=== PATIENT | female | born 1955 | race Caucasian/White ===

== ENCOUNTER → 2018-06-19 | Outpatient (CLI) | payer MEDICARE, BC ==
[2018-06-19 14:31] VITALS: BP 94/69; PULSE 108; TEMP 97.6; BMI 28.5
--- NOTE | 2018-06-19 14:40 | P.BASOAP ---
Subjective Progress Note Date: 06/19/18 Principal diagnosis: Morbid obesity Patient returns for bariatric follow-up today. Overall poor follow-up. She had her surgery at [facility]. Her surgery was in 2012. She believes she has not seen us for the last 3-4 years. Starting weight around 250. Today she weighs 171. She says that much of her weight has occurred over the last 2 years. During that time. She has noticed a decrease in appetite and decrease in cravings. Patient is being worked up for possible dementia. She also has symptoms of poor balance and gait issues. She states she had a extensive lab workup in March of this year. The labs are not available to me at this time to review. Denies nausea or vomiting. No reflux. No pain. Objective - Vital Signs Vital signs: Vital Signs Temp 97.6 F 06/19/18 14:27 Pulse 108 H 06/19/18 14:27 Resp BP 94/69 06/19/18 14:27 Pulse Ox Intake & Output 06/18/18 06/19/18 06/19/18 18:59 06:59 18:59 Weight 77.836 kg - Exam Abdomen: Soft, nontender, nondistended Assessment/Plan (1) Obesity Narrative/Plan: From a weight loss standpoint patient doing well. We'll try to review the patient's recent labs from March. We'll be sure that thiamine level was checked. Increase exercise level. Follow-up annually. Plan: Date: 06/19/18 Initial Weight: Initial BMI: Current Weight: 77.836 kg Current BMI: 28.5 Type of Surgery: Total Volume in Band: Previous Volume: Volume Removed: Volume Added: Band Size:
== END ==
LOC: BARWHC3 13:52
PROVIDERS: ATTEND Surgery
DX: E66.01 Morbid (severe) obesity due to excess calories (principal); Z68.28 Body mass index [BMI] 28.0-28.9, adult
CPT/HCPCS: 99211

== ENCOUNTER 2020-05-10 15:20 | Observation (INO) | payer MEDICARE, OTHER ==
[2020-05-10] MEDS ORDERED: SODIUM CHLORIDE 0.9% 1,000 ML IV STA (15:58)
[2020-05-10] MEDS ORDERED: ONDANSETRON 4 MG/2 ML VIAL IVP STA (16:02)
[2020-05-10 16:17] LABS: Basophils # (A) 0.1 k/uL (0-0.2); Basophils % (A) 1 %; Eosinophils # (A) 0.6 k/uL (0-0.7); Eosinophils % (A) 7 %; HCT 43.2 % (34.0-46.0); HGB 13.8 gm/dL (11.4-16.0); Lymphocytes # (A) 1.3 k/uL (1.0-4.8); Lymphocytes % (A) 16 %; MCH 30.9 pg (25.0-35.0); MCV 96.5 fL (80.0-100.0); Mean Platelet Volume 8.9; Monocytes # (A) 0.5 k/uL (0-1.0); Monocytes % (A) 7 %; Neutrophils # (A) 5.2 k/uL (1.3-7.7); Neutrophils % (A) 68 %; Platelet Count 177 k/uL (150-450); RBC 4.48 m/uL (3.80-5.40); RDW 12.6 % (11.5-15.5); WBC 7.7 k/uL (3.8-10.6)
--- NOTE | 2020-05-10 16:22 | ED ---
Fall HPI - General Chief Complaint: Fall Stated Complaint: Fall Time Seen by Provider: 05/10/20 15:34 Source: patient Mode of arrival: ambulatory - History of Present Illness Initial Comments: Patient is a 65-year-old female presents emergency room after she sustained a fall on Monday. The patient was in her garage when she tripped over an abdomen that was on the floor. She fell forward hitting the left side of her forehead on the cement. Denies any loss of consciousness at that time. She was able to get up and states that she's had a mild headache with some mild nausea since the incident. Today she was at her daughter's house on the floor playing with her dog. She was moving her head back and forth because the dog was attempting to chew on her tearing and states that she began feeling extremely dizzy and nauseated. She felt as if she was spinning in the room. She got up and felt as if she couldnt walk a straight line. Patient does have some difficulties with ambulation as she has frontal lobe dementia however states this never been this significant. She does not require the assistance of a walker or cane. Patient admits only to a very mild headache. No visual changes. The patient has had a couple episodes of emesis. She denies any weakness in her extremities. Did not take any medications for symptoms per patient comes in extremely hypertensive. She does not take any blood thinners. No other alleviating, precipitating or modifying factors - Related Data Home Medications Medication Instructions Recorded Confirmed Venlafaxine HCl [Effexor] 100 mg PO BID 06/19/18 05/10/20 metFORMIN HCL 1,000 mg PO BID 06/19/18 05/10/20 [place]-3 Fatty Acids/Fish Oil [Fish 1 cap PO BID 05/10/20 05/10/20 Oil 1,000 mg Softgel] Omeprazole 20 mg PO HS 05/10/20 05/10/20 Suvorexant [Belsomra] 20 mg PO HS 05/10/20 05/10/20 Ubidecarenone [Co Q-10] 100 mg PO BID 05/10/20 05/10/20 buPROPion XL [Wellbutrin XL] 450 mg PO DAILY 05/10/20 05/10/20 lamoTRIgine [LaMICtal] 200 mg PO HS 05/10/20 05/10/20 Previous Rx's Medication Instructions Recorded Meclizine [Antivert] 12.5 mg PO TID tab 05/11/20 Allergies Allergy/AdvReac Type Severity Reaction Status Date / Time No Known Allergies Allergy Verified 05/10/20 16:30 Review of Systems ROS Statement: Those systems with pertinent positive or pertinent negative responses have been documented in the HPI. ROS Other: All systems not noted in ROS Statement are negative. Past Medical History Past Medical History: Dementia, Diabetes Mellitus, Fibromyalgia Additional Past Medical History / Comment(s): DM2 History of Any Multi-Drug Resistant Organisms: None Reported Past Surgical History: Bariatric Surgery Additional Past Surgical History / Comment(s): sleeve gastrectomy 2013 Past Psychological History: Depression Smoking Status: Never smoker Past Alcohol Use History: Rare Past Drug Use History: None Reported General Exam Limitations: no limitations General appearance: alert, in no apparent distress Head exam: Present: atraumatic, normocephalic, normal inspection Eye exam: Present: normal appearance, PERRL, EOMI. Absent: scleral icterus, conjunctival injection, periorbital swelling ENT exam: Present: normal exam, mucous membranes moist Neck exam: Present: normal inspection. Absent: tenderness, meningismus, lymphadenopathy Respiratory exam: Present: normal lung sounds bilaterally. Absent: respiratory distress, wheezes, rales, rhonchi, stridor Cardiovascular Exam: Present: regular rate, normal rhythm, normal heart sounds. Absent: systolic murmur, diastolic murmur, rubs, gallop, clicks GI/Abdominal exam: Present: soft, normal bowel sounds. Absent: distended, tenderness, guarding, rebound, rigid Extremities exam: Present: normal inspection, full ROM, normal capillary refill. Absent: tenderness, pedal edema, joint swelling, calf tenderness Back exam: Present: normal inspection Neurological exam: Present: alert, oriented X3, CN II-XII intact Psychiatric exam: Present: normal affect, normal mood Skin exam: Present: warm, dry, intact, normal color. Absent: rash Course Vital Signs 05/10/20 05/10/20 05/10/20 15:25 16:31 17:00 Temperature 98.4 F Pulse Rate 74 69 74 Respiratory 18 18 18 Rate Blood Pressure 204/121 163/95 150/84 O2 Sat by Pulse 100 96 100 Oximetry 05/10/20 17:30 Temperature Pulse Rate 67 Respiratory 18 Rate Blood Pressure 161/86 O2 Sat by Pulse 98 Oximetry Medical Decision Making - Medical Decision Making Upon arrival patient is placed in room 1. A thorough history and physical exam was performed. We did repeat her blood pressure which is markedly improved from triage blood pressure. Periphery is established. 12-lead EKG was performed. Patient was given 4 mg of Zofran for her nausea and vomiting. I did recommend a CT of the patient's brain, cervical spine and facial bones. Imaging is negative for any acute fractures or intracranial bleeding. Laboratory studies are performed and are reviewed. Patient was reevaluated. Continues to have some room spinning sensation. Patient was given a dose of meclizine. I discussed diagnosis, differential treatment options. At this time I did recommend hospital admission for patient's to be evaluated by neurology. She is made aware that there is no neurology in house however they will be available tomorrow morning. I spoke with Dr. Waggoner who accepted admission for the patient. Patient remained in stable condition awaiting a bed on the floor - Lab Data Result diagrams: 05/11/20 06:38 05/11/20 06:38 Lab Results 05/10/20 05/10/20 05/10/20 Range/Units 16:07 16:07 16:07 WBC 7.7 (3.8-10.6) k/uL RBC 4.48 (3.80-5.40) m/uL Hgb 13.8 (11.4-16.0) gm/dL Hct 43.2 (34.0-46.0) % MCV 96.5 (80.0-100.0) fL MCH 30.9 (25.0-35.0) pg MCHC 32.0 (31.0-37.0) g/dL RDW 12.6 (11.5-15.5) % Plt Count 177 (150-450) k/uL Neutrophils % 68 % Lymphocytes % 16 % Monocytes % 7 % Eosinophils % 7 % Basophils % 1 % Neutrophils # 5.2 (1.3-7.7) k/uL Lymphocytes # 1.3 (1.0-4.8) k/uL Monocytes # 0.5 (0-1.0) k/uL Eosinophils # 0.6 (0-0.7) k/uL Basophils # 0.1 (0-0.2) k/uL PT 10.6 (9.0-12.0) sec INR 1.0 (<1.2) Sodium 136 L (137-145) mmol/L Potassium 4.7 (3.5-5.1) mmol/L Chloride 103 (98-107) mmol/L Carbon Dioxide 27 (22-30) mmol/L Anion Gap 6 mmol/L BUN 19 H (7-17) mg/dL Creatinine 0.73 (0.52-1.04) mg/dL Est GFR (CKD-EPI)AfAm >90 (>60 ml/min/1.73 sqM) Est GFR (CKD-EPI)NonAf 88 (>60 ml/min/1.73 sqM) Glucose 123 H (74-99) mg/dL Plasma Lactic Acid Husam (0.7-2.0) mmol/L Calcium 9.6 (8.4-10.2) mg/dL Total Bilirubin 0.7 (0.2-1.3) mg/dL AST 30 (14-36) U/L ALT 17 (4-34) U/L Alkaline Phosphatase 94 (38-126) U/L Troponin I (0.000-0.034) ng/mL Total Protein 7.0 (6.3-8.2) g/dL Albumin 4.3 (3.5-5.0) g/dL 05/10/20 05/10/20 Range/Units 16:07 16:07 WBC (3.8-10.6) k/uL RBC (3.80-5.40) m/uL Hgb (11.4-16.0) gm/dL Hct (34.0-46.0) % MCV (80.0-100.0) fL MCH (25.0-35.0) pg MCHC (31.0-37.0) g/dL RDW (11.5-15.5) % Plt Count (150-450) k/uL Neutrophils % % Lymphocytes % % Monocytes % % Eosinophils % % Basophils % % Neutrophils # (1.3-7.7) k/uL Lymphocytes # (1.0-4.8) k/uL Monocytes # (0-1.0) k/uL Eosinophils # (0-0.7) k/uL Basophils # (0-0.2) k/uL PT (9.0-12.0) sec INR (<1.2) Sodium (137-145) mmol/L Potassium (3.5-5.1) mmol/L Chloride (98-107) mmol/L Carbon Dioxide (22-30) mmol/L Anion Gap mmol/L BUN (7-17) mg/dL Creatinine (0.52-1.04) mg/dL Est GFR (CKD-EPI)AfAm (>60 ml/min/1.73 sqM) Est GFR (CKD-EPI)NonAf (>60 ml/min/1.73 sqM) Glucose (74-99) mg/dL Plasma Lactic Acid Husam 2.0 (0.7-2.0) mmol/L Calcium (8.4-10.2) mg/dL Total Bilirubin (0.2-1.3) mg/dL AST (14-36) U/L ALT (4-34) U/L Alkaline Phosphatase (38-126) U/L Troponin I <0.012 (0.000-0.034) ng/mL Total Protein (6.3-8.2) g/dL Albumin (3.5-5.0) g/dL - EKG Data EKG Comments: EKG demonstrates a normal sinus rhythm with a ventricular rate of 81. AK interval 160. QRS 98. QTC 443. No acute ST segment elevations or depressions concerning for ischemic changes Disposition Clinical Impression: Fall, Blunt head trauma, Concussion, Vertigo, Vomiting Disposition: ADMITTED IP TO THIS [facility] Condition: Stable Is patient prescribed a controlled substance at d/c from ED?: No Decision to Admit Reason: Admit from EC Decision Date: 05/10/20 Decision Time: 17:16
[2020-05-10 16:30] LABS: ALT 17 U/L (4-34); AST 30 U/L (14-36); African American GFR (CKD) >90 (>60 ml/min/1.73 sqM); Albumin 4.3 g/dL (3.5-5.0); Alkaline Phosphatase 94 U/L (38-126); Anion Gap 6 mmol/L; Blood Urea Nitrogen 19 mg/dL (7-17); Calcium 9.6 mg/dL (8.4-10.2); Carbon Dioxide 27 mmol/L (22-30); Chloride 103 mmol/L (98-107); Glucose 123 mg/dL (74-99); Non-African American GFR(CKD) 88 (>60 ml/min/1.73 sqM); Potassium 4.7 mmol/L (3.5-5.1); Sodium 136 mmol/L (137-145); Total Bilirubin 0.7 mg/dL (0.2-1.3)
[2020-05-10 16:36] LABS: Prothrombin Time 10.6 sec (9.0-12.0)
[2020-05-10] MEDS ORDERED: MECLIZINE 12.5 MG TAB PO STA (16:45)
--- NOTE | 2020-05-10 16:52 | CT ---
EXAMINATION TYPE: CT brain adrianaine wo con DATE OF EXAM: 05/10/2020 COMPARISON: None HISTORY: Trauma, fall, vomiting, dizziness. CT DLP: 1218.4 mGycm Automated exposure control for dose reduction was used. Ventricles of normal size. There is no mass effect nor midline shift. There is no sign of intracrania l hemorrhage. The calvarium is intact. There is no evidence of cerebral edema. There is normal aerati on of the mastoid sinuses. Cervical vertebra have normal alignment. There is disc space narrowing at C5-6 and C6-7 with spurring of the endplates. There is mild hypertrophic multilevel cervical facet arthropathy. There is no comp ression fracture. I see no bony destructive process. IMPRESSION: Negative CT scan of the brain. Spondylotic changes in the cervical spine. No fracture.
--- NOTE | 2020-05-10 16:54 | CT ---
EXAMINATION TYPE: CT facial bones wo con DATE OF EXAM: 05/10/2020 COMPARISON: None HISTORY: Trauma, fall, vomiting, dizziness. CT DLP: 1218.4 mGycm Automated exposure control for dose reduction was used. Images were obtained from the bottom of the mandible to the top of the frontal sinuses with no contra st. The mandibular ring is intact. Temporomandibular joints are intact. There is normal appearance of the zygomatic arches appear maxilla is intact. Nasal bone appears intact. There is no evidence of a blow out fracture. Orbital margins are intact. There is no evidence of retro-orbital mass. There is fairly normal aeration of the paranasal sinuses. I see no bony destructive process. Mastoid sinuses appear normal. IMPRESSION: Negative CT scan of the facial bones. No fracture.
[2020-05-10] MEDS ORDERED: NALOXONE 0.4 MG/ML 1 ML VIAL IV PRN (17:16)
[2020-05-10] MEDS ORDERED: ALPRAZolam 0.25 MG TAB PO PRN (17:58)
[2020-05-10] MEDS ORDERED: HYDROcodone/APAP 5-325MG 1 EACH TAB PO PRN (17:58)
--- NOTE | 2020-05-10 19:04 | US ---
EXAMINATION TYPE: US carotid duplex BILAT DATE OF EXAM: 05/10/2020 COMPARISON: NONE CLINICAL HISTORY: stroke. Dizziness, nausea and vomiting. EXAM MEASUREMENTS: RIGHT: Peak Systolic Velocity (PSV) cm/sec ----- Right CCA: 76.9 ----- Right ICA: 72.6 ----- Right ECA: 79.8 ICA/CCA ratio: 0.9 RIGHT: End Diastole cm/sec ----- Right CCA: 26.0 ----- Right ICA: 26.0 ----- Right ECA: 8.6 LEFT: Peak Systolic Velocity (PSV) cm/sec ----- Left CCA: 79.8 ----- Left ICA: 98.7 ----- Left ECA: 87.1 ICA/CCA ratio: 1.2 LEFT: End Diastole cm/sec ----- Left CCA: 23.1 ----- Left ICA: 39.1 ----- Left ECA: 12.9 VERTEBRALS (direction of flow): Right Vertebral: Antegrade Left Vertebral: Antegrade Rhythm: Normal No significant stenosis seen IMPRESSION: There is antegrade flow in the vertebral arteries. The images and measurements suggest less than 15% stenosis in both internal carotid arteries. Criteria for Assigning % of Stenosis / Diameter reduction (Estimation based on the indirect measurements of the internal carotid artery velocities (ICA PSV). 1. Normal (no stenosis)=ICA PSV < 125 cm/s: ratio < 2.0: ICA EDV<40 cm/s. 2. Less than 50% stenosis=ICA PSV < 125 cm/s: ratio < 2.0: ICA EDV<40 cm/s. 3. 50 to 69% stenosis=ICA PSV of 125 to 230 cm/s: ration 2.0 ? 4.0: ICA EDV 40-100 cm/s. 4. Greater than 70% stenosis to near occlusion= ICA PSV > 230 cm/s: ratio > 4.0: ICA EDV > 100 cm/s. 5. Near occlusion= ICA PSV velocities may be low or undetectable: variable ratio and ICA EDV. 6. Total occlusion=unable to detect flow.
[2020-05-10] MEDS ORDERED: NON FORMULARY DRUG (Omeprazole [Omeprazole] 20 MG Capsule.Dr) PO SCH (21:00)
[2020-05-10] MEDS ORDERED: NON FORMULARY DRUG (Omega-3 Fatty Acids/Fish Oil [Fish Oil 1,000 Mg Softgel] 1 EACH Capsul PO SCH (21:00)
[2020-05-10] MEDS ORDERED: NON FORMULARY DRUG (Suvorexant [Belsomra] 20 MG Tablet) PO SCH (21:00)
[2020-05-10] MEDS ORDERED: NON FORMULARY DRUG (Ubidecarenone [Co Q-10] 100 MG Capsule) PO SCH (21:00)
[2020-05-10] MEDS ORDERED: lamoTRIgine 100 MG TAB PO SCH (21:00)
[2020-05-10] MEDS: metFORMIN 500 MG TAB PO SCH (21:17)
[2020-05-10] MEDS: VENLAFAXINE HCL 50 MG TAB PO SCH (21:17)
[2020-05-10] MEDS: MECLIZINE 25 MG TAB PO SCH (21:18)
[2020-05-10] MEDS: HEPARIN SODIUM,PORCINE 5,000 UNIT/ML 1 ML VIAL SQ SCH (21:18)
[2020-05-10] MEDS: ASPIRIN 81 MG PO SCH (21:19)
[2020-05-10 22:09] LABS: Glucose,Whole Blood 107 mg/dL (75-99)
[2020-05-10] MEDS: ONDANSETRON 4 MG/2 ML VIAL IVP PRN (22:15)
--- NOTE | 2020-05-11 01:14 | HP ---
HISTORY AND PHYSICAL CHIEF COMPLAINT: Dizziness and fall. HISTORY OF PRESENT ILLNESS: This 65-year-old woman with a past medical history of multiple medical problems with history of dementia, history of diabetes, history of fibromyalgia, history of , history of bariatric surgery being followed Dr. Emilia Kemp in the outpatient setting apparently had a fall on Monday and the patient tripped over on the floor. The patient hit the left side of the forehead and today the patient was playing with the puppy and subsequently patient had significant dizziness and difficulty walking. The patient came to [facility] and was admitted for further evaluation and treatment. There is no history of fever or rigors. No history of headache, loss of consciousness or seizures at this time. PAST MEDICAL HISTORY: History of dementia, diabetes mellitus, fibromyalgia, history of bariatric surgery. MEDICATIONS: Medications prior to admission include: 1. Metformin. 2. Lamictal. 3. Wellbutrin. 4. Effexor. 5. Coenzyme Q. 6. Belsomra. 7. Omeprazole. ALLERGIES: Allergies are none. FAMILY HISTORY: No history of heart disease or strokes in the family. SOCIAL HISTORY: No history of smoking. No history of alcohol. REVIEW OF SYSTEMS: ENT: As mentioned earlier. CARDIOVASCULAR SYSTEM: No angina. RESPIRATORY SYSTEM: As mentioned earlier. GI: As mentioned earlier. : No dysuria. NERVOUS SYSTEM: No numbness or weakness. ALLERGY/IMMUNOLOGY: No asthma or hayfever. MUSCULOSKELETAL: As mentioned earlier. HEMATOLOGY/ONCOLOGY: No history of anemia. ENDOCRINE: History of diabetes. CONSTITUTIONAL: As mentioned earlier. DERMATOLOGY: Negative. RHEUMATOLOGY: Negative. PSYCHIATRY: As mentioned earlier. PHYSICAL EXAMINATION: The patient is alert and oriented x3. Pulse 67, blood pressure 161/86, respiration 18, temperature 98.4, pulse ox 98% on room air. HEENT: Conjunctivae normal. Oral mucosa moist. Otherwise some bruise around the left eye present. NECK: No jugular venous distention. No carotid bruit. No lymph enlargement. CARDIOVASCULAR: S1, S2 muffled. No S3, no S4. RESPIRATORY: Breath sounds diminished at the bases. No rhonchi. No crackles. ABDOMEN: Soft. Nontender. No mass palpable. LEGS: No edema, no swelling. NERVOUS SYSTEM: Higher functions as mentioned earlier. Otherwise, cranial nerves 2 through 12 grossly intact. Minimal nystagmus present. Otherwise, no focal motor or sensory deficits. No signs of cerebellar dysfunction. Gait not tested. SKIN: As mentioned earlier. JOINTS: No active deforming arthropathy. LYMPHATICS: No lymphadenopathy of the neck, axillae or groin. LABS: CBC within normal. Sodium 136. Glucose 123. ASSESSMENT: 1. Dizziness and vertigo, possible benign positional vertigo, rule out acute transient ischemic attack or stroke. 2. Hyponatremia. 3. Increased random blood sugar. 4. History of recent fall and possible concussion. 5. Dementia. 6. Diabetes mellitus type 2. 7. History of fibromyalgia. 8. History of bariatric surgery. 9. History of sleeve gastrectomy in 2013. 10.Depression. 11.FULL CODE. RECOMMENDATIONS AND DISCUSSION: This 65-year-old woman presented with multiple complex medical issues. Recommend to continue the current medications and symptomatic treatment. Otherwise at this time resume the home medications. Antiplatelet agents. Neurovascular workup, neurology consultation. Otherwise prognosis guarded because of multiple complex medical issues. Further recommendations to follow. A copy of dictation forwarded to Dr. Kemp who is the primary physician. MMODL / IJN: [id number] / [id number]
[2020-05-11 06:33] LABS: Glucose,Whole Blood 83 mg/dL (75-99)
[2020-05-11] MEDS: ONDANSETRON 4 MG/2 ML VIAL IVP PRN (06:36)
[2020-05-11 07:18] LABS: Basophils # (A) 0.1 k/uL (0-0.2); Basophils % (A) 1 %; Eosinophils # (A) 0.5 k/uL (0-0.7); Eosinophils % (A) 6 %; HCT 42.7 % (34.0-46.0); HGB 13.5 gm/dL (11.4-16.0); Lymphocytes # (A) 2.4 k/uL (1.0-4.8); Lymphocytes % (A) 33 %; MCH 30.8 pg (25.0-35.0); MCHC 31.7 g/dL (31.0-37.0); MCV 97.2 fL (80.0-100.0); Mean Platelet Volume 8.6; Monocytes # (A) 0.5 k/uL (0-1.0); Monocytes % (A) 7 %; Neutrophils # (A) 3.8 k/uL (1.3-7.7); Neutrophils % (A) 52 %; Platelet Count 194 k/uL (150-450); RBC 4.39 m/uL (3.80-5.40); RDW 12.7 % (11.5-15.5); WBC 7.4 k/uL (3.8-10.6)
[2020-05-11 07:29] LABS: African American GFR (CKD) >90 (>60 ml/min/1.73 sqM); Anion Gap 7 mmol/L; Blood Urea Nitrogen 15 mg/dL (7-17); Calcium 9.5 mg/dL (8.4-10.2); Carbon Dioxide 30 mmol/L (22-30); Chloride 101 mmol/L (98-107); Glucose 96 mg/dL (74-99); Non-African American GFR(CKD) 84 (>60 ml/min/1.73 sqM); Sodium 138 mmol/L (137-145)
[2020-05-11] MEDS ORDERED: PANTOPRAZOLE 40 MG TABLET PO SCH (07:30)
[2020-05-11] MEDS: metFORMIN 500 MG TAB PO SCH (07:33)
[2020-05-11] MEDS ORDERED: buPROPion XL 150 MG TAB.ER.24H PO SCH (09:00)
[2020-05-11] MEDS: MECLIZINE 25 MG TAB PO SCH (09:01)
[2020-05-11] MEDS: VENLAFAXINE HCL 50 MG TAB PO SCH (09:01)
[2020-05-11] MEDS: ASPIRIN 81 MG PO SCH (09:01)
[2020-05-11] MEDS: HEPARIN SODIUM,PORCINE 5,000 UNIT/ML 1 ML VIAL SQ SCH (09:02)
[2020-05-11 09:41] VITALS: BP 172/85; PULSE 67; RESP 18; TEMP 98.3
[2020-05-11 11:40] LABS: Glucose,Whole Blood 105 mg/dL (75-99)
--- NOTE | 2020-05-11 13:00 | ECHOF ---
Referral Reason:Stroke MEASUREMENTS -------- HEIGHT: 165.1 cm WEIGHT: 79.8 kg BP: 167/85 IVSd: 1.3 cm (0.6 - 1.1) LVIDd: 3.5 cm (3.9 - 5.3) LVPWd: 1.2 cm (0.6 - 1.1) IVSs: 1.6 cm LVIDs: 1.7 cm LVPWs: 1.6 cm LAESV Index (A-L): 25.86 ml/m Ao Diam: 2.5 cm (2.0 - 3.7) AV Cusp: 1.8 cm (1.5 - 2.6) LA Diam: 2.8 cm (2.7 - 3.8) MV EXCURSION: 15.618 mm (> 18.000) MV EF SLOPE: 68 mm/s (70 - 150) EPSS: 1.1 cm MV E Sanket: 0.83 m/s MV DecT: 251 ms MV A Sanket: 1.13 m/s MV E/A Ratio: 0.73 RAP: 5.00 mmHg RVSP: 9.64 mmHg FINDINGS -------- This was a technically good study. The left ventricular size is normal. There is mild concentric left ventricular hypertrophy. Overa ll left ventricular systolic function is normal with, an EF between 55 - 60 %. The diastolic fillin g pattern is normal for the age of the patient 7.88. The right ventricle is normal in size. The left atrial size is normal. Normal LA size by volume 22+/-6 ml/m2. The right atrial size is normal. The aortic valve is trileaflet and appears structurally normal. The mitral valve is normal. There is trace mitral regurgitation. The tricuspid valve appears structurally normal. Mild tricuspid regurgitation present. Right vent ricular systolic pressure is normal at < 35 mmHg. There is no pulmonic regurgitation present. The aortic root size is normal. Normal inferior vena cava with normal inspiratory collapse consistent with estimated right atrial pre ssure of 5 mmHg. There is no pericardial effusion. CONCLUSIONS -------- 1. The left ventricular size is normal. 2. There is mild concentric left ventricular hypertrophy. 3. Overall left ventricular systolic function is normal with, an EF between 55 - 60 %. 4. The diastolic filling pattern is normal for the age of the patient 7.88 5. There is trace mitral regurgitation. 6. Mild tricuspid regurgitation present. THIRD RIGGER: Della Kyle RDCS
--- NOTE | 2020-05-11 13:30 | P.CNNES ---
History of Present Illness Consult date: 05/11/20 Requesting physician: Joann Puckett Reason for Consult: Acute vertigo, recent BHT History of Present Illness: Patient is a 65-year-old female came to the hospital yesterday at 3:20 PM after she sustained a fall on 05/06/2020 at 2 PM. The patient was in the garage, and she tripped over a molding that was on the floor. She fell forward hitting the left side of her forehead on the cement. Denies any loss of consciousness at that time. She was able to get up by using support of the chair. After the incident, she had a mild headache with some mild nausea. The symptoms improved significantly at the end of the following day. Patient states that yesterday at around 1 to 1:15 PM, she was playing with the dog, laying supine on the bed. The dog tried to nibble on her earrings and she was moving her head [id number]. Afterwards, when she got up, she felt severe nausea, lightheaded, imbalance. She denied any spinning sensation. She got up and sat in the recliner for about half an hour, with symptoms no better. Any time she would move her head, or even when she moves her eyes, she would feel d radha/imbalance. She decided to come to the ER, and arrived yesterday at 3:20 PM. Patient states that for about couple weeks before this fall, she has been feeling slightly unsteady, was noticing has to be more careful for the balance. Vital signs on arrival was blood pressure 204/121, pulse rate 74 temperature 98.4. The blood pressure did improve 163/95 subsequently. Computed tomography scan of the brain is normal. CT of the cervical spine showed spondylotic changes in the cervical spine. No fracture. CT of the facial bones normal. No fracture. EKG normal sinus rhythm. Carotid Doppler showed antegrade flow in the vertebral arteries. The images and measurements suggest less than 15% stenosis in both ICAs. Blood tests shows normal CBC, PT/PTT, Chem-7. Hepatic panel normal. Patient had a 2-D echo performed today, which revealed normal left ventricular size. Mild concentric LVH. EF is between 55-60%. Patient denies any tobacco or alcohol. She has diabetes for 20 years. She is hypertension. Patient states that a year ago, she had developed some hypotension, with which she had dizziness but nothing what she experienced yesterday. Patient states that she follows up with Dr. Martínez and has been diagnosed with frontotemporal dementia. This was diagnosed after she underwent neuropsychological testing and a PET scan. She also has fibromyalgia and major depression. Review of Systems As above in detail. Patient denies any focal numbness, tingling slurred speech, loss of vision, diplopia. She did have some nausea but no diarrhea. Denies abdominal pain. Denies chest pain. All other review of systems unremarkable. Past Medical History Past Medical History: Dementia, Diabetes Mellitus, Fibromyalgia Additional Past Medical History / Comment(s): DM2, major depressive disorder History of Any Multi-Drug Resistant Organisms: None Reported Past Surgical History: Back Surgery, Bariatric Surgery, Cholecystectomy, H ysterectomy, Orthopedic Surgery Additional Past Surgical History / Comment(s): sleeve gastrectomy 2012 Past Anesthesia/Blood Transfusion Reactions: No Reported Reaction Past Psychological History: Depression Smoking Status: Never smoker Past Alcohol Use History: Rare Past Drug Use History: None Reported Medications and Allergies Home Medications Medication Instructions Recorded Confirmed Type Venlafaxine HCl [Effexor] 100 mg PO BID 06/19/18 05/10/20 History metFORMIN HCL 1,000 mg PO BID 06/19/18 05/10/20 History [place]-3 Fatty Acids/Fish Oil [Fish 1 cap PO BID 05/10/20 05/10/20 History Oil 1,000 mg Softgel] Omeprazole 20 mg PO HS 05/10/20 05/10/20 History Suvorexant [Belsomra] 20 mg PO HS 05/10/20 05/10/20 History Ubidecarenone [Co Q-10] 100 mg PO BID 05/10/20 05/10/20 History buPROPion XL [Wellbutrin Xl] 450 mg PO DAILY 05/10/20 05/10/20 History lamoTRIgine [LaMICtal] 200 mg PO HS 05/10/20 05/10/20 History Allergies Allergy/AdvReac Type Severity Reaction Status Date / Time No Known Allergies Allergy Verified 05/10/20 16:30 Physical Examination - Vital Signs Vital Signs: Vital Signs Temp Pulse Pulse Pulse Pulse Resp BP 05/11/20 02:46 63 16 05/11/20 02:45 98.0 F 63 16 05/10/20 19:50 72 15 05/10/20 19:25 98.0 F 72 15 05/10/20 18:08 98.4 F 71 18 05/10/20 17:57 110 H 108 H 108 H 05/10/20 17:30 67 18 161/86 05/10/20 17:00 74 18 150/84 05/10/20 16:31 69 18 163/95 05/10/20 15:25 98.4 F 74 18 204/121 BP BP BP Pulse Ox 05/11/20 02:46 05/11/20 02:45 167/85 97 05/10/20 19:50 05/10/20 19:25 144/74 99 05/10/20 18:08 165/88 97 05/10/20 17:57 168/88 159/86 152/88 05/10/20 17:30 98 05/10/20 17:00 100 05/10/20 16:31 96 05/10/20 15:25 100 Intake and Output 05/10/20 05/11/20 05/11/20 22:59 06:59 14:59 Output Total 100 Balance -100 Output: Emesis 100 Other: # Voids 3 Weight 80.1 kg On examination patient is a late middle aged female, in no acute distress. Patient is alert and awake fully oriented to time place and person. Speech and language functions are normal. Attention and concentration fund of knowledge appears adequate. Detail testing deferred. On cranial examination pupils are round and reactive to light, visual hernandez are full on confrontation, extraocular muscles are intact with no nystagmus. Face is symmetric, tongue protrudes the midline. Palatal elevation sensation normal. Hearing and shoulder shrug normal. On muscle strength testing, there is no pronator drift and the strength is normal in arms and legs distally and proximally. Reflexes are 1+ and plantars are downgoing. Sensory touch is equal. No ataxia for [id number] or dkiy-[id number] testing, although she is slightly tremulous for [id number] on either side. Tone and bulk of muscles normal. Patient says that now her gait has improved and she is able to walk to the bathroom. Today she feels much better. On general examination there is no carotid bruit, S1 and S2 audible, abdomen soft nontender, chest clear. No peripheral edema. Results - Laboratory Findings CBC and BMP: 05/11/20 06:38 05/11/20 06:38 Abnormal Lab Findings: Abnormal Labs 05/10/20 05/10/20 16:07 22:08 Sodium 136 L BUN 19 H Glucose 123 H POC Glucose (mg/dL) 107 H Assessment and Plan Assessment: * Acute onset of lightheadedness, imbalance, nausea, since yesterday 05/10/2020, likely due to peripheral vestibular dysfunction. Possible BPPV. * Status post fall due to tripping 05/06/2020. * Diabetes for 20 years * Hypertension * Self reported history of frontotemporal dementia * History of Depression Plan: * Patient had a normal computed tomography scan of head, carotid Doppler and a 2-D echo. Her current neurological examination is normal. No other neurological workup is indicated. Her symptoms have mostly resolved. * Suggest taking Antivert only as needed for dizziness/imbalance. Continue aspirin 81 mg. * Patient's gait imbalance could be related to taking multiple psychoactive medications as mentioned in home medication list. May need adjustment in the doses. We will check B12, folate, TSH. * Neurologically clear for discharge.
--- NOTE | 2020-05-11 16:21 | DS ---
DISCHARGE SUMMARY DATE OF SERVICE: 05/11/2020 FINAL DIAGNOSES: 1. Dizziness and vertigo, possibly benign pressure vertigo. TIA unlikely. 2. Hyponatremia. 3. Increased random blood sugar. 4. History of recent fall and possible concussion. 5. Dementia. 6. Diabetes mellitus, type 2. 7. History of fibromyalgia. 8. History of bariatric surgery. 9. History of sleeve gastrectomy in 2013. 10.History of depression. 11.FULL CODE. DISCHARGE DISPOSITION: The patient will be discharged in stable condition with guarded prognosis. HISTORY OF PRESENT ILLNESS: This 65-year-old woman with a past medical history of multiple medical problems was admitted with dizziness and vertigo. Patient was treated symptomatically with Antivert and improved significantly. Ejection fraction was found to be 55% to 60%. The patient is keen on going home. On exam, vitals are stable. CARDIOVASCULAR SYSTEM: S1, S2 muffled. ABDOMEN: Soft. NERVOUS SYSTEM: No focal deficit. DISCHARGE ADVICE AND MEDICATIONS: 1. Discharge diet is cardiac. 2. Activity limited until followup. 3. Follow up with Dr. Emilia Kemp in 1-2 days. 4. Belsomra 20 mg at bedtime. 5. Coenzyme Q10 100 mg b.i.d. 6. Effexor 100 mg b.i.d. 7. [place]-3 fatty acids 1 p.o. b.i.d. 8. Lamictal 200 mg at bedtime. 9. Metformin 1000 mg b.i.d. 10.Omeprazole 20 mg at bedtime. 11.Wellbutrin XL 450 mg p.o. daily. 12.Antivert 12.5 mg t.i.d. for 2 days and then p.r.n. 13.Follow up with Dr. Hillman in 2 weeks. MMODL / IJN: [id number] /
[2020-05-11 18:47] LABS: Folate, Serum 18.2 ng/mL
== END 2020-05-11 14:27 | disposition home or self-care (01) ==
LOC: EC 15:20 → 1SOBS 17:16
PROVIDERS: ADMIT Hospitalist; ATTEND Hospitalist
DX: R42 Dizziness and giddiness (principal); E11.9 Type 2 diabetes mellitus without complications; E87.1 Hypo-osmolality and hyponatremia; S09.90XA Unspecified injury of head, initial encounter; W01.198A Fall on same level from slipping, tripping and stumbling with subsequent striking against other object, initial encounter; F02.80 Dementia in other diseases classified elsewhere, unspecified severity, without behavioral disturbance, psychotic disturbance, mood disturbance, and anxiety; F32.9 Major depressive disorder, single episode, unspecified; G31.09 Other frontotemporal neurocognitive disorder; I10 Essential (primary) hypertension; M79.7 Fibromyalgia; Z79.84 Long term (current) use of oral hypoglycemic drugs; Z79.899 Other long term (current) drug therapy; Z90.710 Acquired absence of both cervix and uterus; Z98.84 Bariatric surgery status
CPT/HCPCS: 96376 ×2; 96361; 96374; 99285; 36415; 93005; 93306; 80053; 80048; 84443; 82607; 82746; 83605; 84484; 85025 ×2; 85610; 93880; 72125; 70486; 70450; G0378 ×2; J2405 ×2

== ENCOUNTER 2021-09-16 13:07 | Observation (INO) | payer MEDICARE, OTHER ==
[2021-09-16 13:16] VITALS: TEMP 98
--- NOTE | 2021-09-16 14:14 | ED ---
Weakness HPI <Nathen Pearson - Last Filed: 09/16/21 16:15> - General Source: patient Mode of arrival: wheelchair <Joann Puckett - Last Filed: 09/27/21 00:19> - General Chief complaint: Weakness Stated complaint: Weakness/Dizziness/High HR - History of Present Illness Initial comments: 66-year-old female presents emergency department with complaint of generalized weakness, tremors, ataxia. Patient was seen at her [facility] and her provider was concerned with her symptoms. States that for the past 3 days she has been unable to stand up and walk a straight line. has been assisting her in getting up from a seated position. Normally does not have any issues and getting. Does report to a history of a stroke in the past. Affected her speech and writing. She denies any recent illnesses. Does have some blurred vision. Visual change was worse while at her [facility] clinic however resolved after 8 minutes. No speech changes. She denies any chest pain or shortness of breath. No worsening weakness in her upper extremities. No recent medication changes. No other alleviating, precipitating modifying factors (Joann Puckett) - Related Data Home Medications Medication Instructions Recorded Confirmed Venlafaxine HCl [Effexor] 100 mg PO DAILY 06/19/18 09/16/21 metFORMIN HCL [Glucophage] 1,000 mg PO BID 06/19/18 09/16/21 Omeprazole 20 mg PO DAILY 05/10/20 09/16/21 Suvorexant [Belsomra] 20 mg PO HS 05/10/20 09/16/21 buPROPion XL [Wellbutrin XL] 450 mg PO DAILY 05/10/20 09/16/21 lamoTRIgine [LaMICtal] 200 mg PO HS 05/10/20 09/16/21 Cetirizine HCl 10 mg PO DAILY 09/16/21 09/16/21 Co Q-10 120mg 2 cap PO DAILY 09/16/21 09/16/21 Dha Ultimate Fish Oil 1200mg 2 cap PO DAILY 09/16/21 09/16/21 Meclizine [Antivert] 12.5 mg PO TID PRN 09/16/21 09/16/21 Propranolol LA [Inderal LA] 80 mg PO DAILY 09/16/21 09/16/21 Rizatriptan Odt [Maxalt Upper Cutter Machine] 10 mg PO DAILY PRN 09/16/21 09/16/21 Venlafaxine HCl [Effexor] 200 mg PO HS 09/16/21 09/16/21 lamoTRIgine [LaMICtal] 100 mg PO DAILY 09/16/21 09/16/21 Previous Rx's Medication Instructions Recorded Linagliptin [Tradjenta] 5 mg PO DAILY #30 tab 09/17/21 Allergies Allergy/AdvReac Type Severity Reaction Status Date / Time No Known Allergies Allergy Verified 09/16/21 16:30 Review of Systems ROS Other: All systems not noted in ROS Statement are negative. <Nathen Pearson - Last Filed: 09/16/21 16:15> ROS Other: All systems not noted in ROS Statement are negative. <Joann Puckett - Last Filed: 09/27/21 00:19> ROS Statement: Those systems with pertinent positive or pertinent negative responses have been documented in the HPI. Past Medical History Past Medical History: Dementia, Diabetes Mellitus, Fibromyalgia Additional Past Medical History / Comment(s): DM2 History of Any Multi-Drug Resistant Organisms: None Reported Past Surgical History: Bariatric Surgery Additional Past Surgical History / Comment(s): sleeve gastrectomy 2013 Past Anesthesia/Blood Transfusion Reactions: No Reported Reaction Past Psychological History: Depression Smoking Status: Never smoker Past Alcohol Use History: Rare Past Drug Use History: None Reported <Joann Puckett - Last Filed: 09/27/21 00:19> General Exam General appearance: alert, in no apparent distress Head exam: Present: atraumatic, normocephalic, normal inspection Eye exam: Present: normal appearance, PERRL, EOMI. Absent: scleral icterus, conjunctival injection, periorbital swelling ENT exam: Present: normal exam, mucous membranes moist Neck exam: Present: normal inspection. Absent: tenderness, meningismus, lymphadenopathy Respiratory exam: Present: normal lung sounds bilaterally. Absent: respiratory distress, wheezes, rales, rhonchi, stridor Cardiovascular Exam: Present: normal rhythm, tachycardia, normal heart sounds. Absent: systolic murmur, diastolic murmur, rubs, gallop, clicks GI/Abdominal exam: Present: soft, normal bowel sounds. Absent: distended, tenderness, guarding, rebound, rigid Extremities exam: Present: normal inspection, full ROM, normal capillary refill. Absent: tenderness, pedal edema, joint swelling, calf tenderness Back exam: Present: normal inspection Neurological exam: Present: alert, oriented X3, CN II-XII intact Psychiatric exam: Present: normal affect, normal mood Skin exam: Present: warm, dry, intact, normal color. Absent: rash <Joann Puckett - Last Filed: 09/27/21 00:19> Course <Nathen Pearson - Last Filed: 09/16/21 16:15> Vital Signs 09/16/21 09/16/21 09/16/21 13:11 15:20 17:27 Temperature 98.0 F Pulse Rate 105 H 82 76 Respiratory 18 16 18 Rate Blood Pressure 125/69 153/75 153/83 O2 Sat by Pulse 97 98 95 Oximetry 09/16/21 09/16/21 09/17/21 18:47 21:14 01:00 Temperature Pulse Rate 87 84 90 Respiratory 18 18 18 Rate Blood Pressure 187/96 158/81 130/93 O2 Sat by Pulse 100 99 100 Oximetry 09/17/21 06:20 Temperature Pulse Rate 81 Respiratory 18 Rate Blood Pressure 158/86 O2 Sat by Pulse 99 Oximetry - Reevaluation(s) Reevaluation #1: 09/16/21 16:15 The patient was endorsed me by Dr. Brizuela at her shift change pending CAT scan results CT and CT angios showed evidence of a remote stroke but no evidence of acute findings at this time with respect to neurological issues. There was evidence of a "" bulge at the vallecula seen on CAT scan ENT consultation should be considered. I discussed the case with Dr. Mendieta who is agreed to set the patient consult and admission additionally neurology will be consulted. Patient states she has had some nausea along with her other symptoms. (Nathen Pearson) Reevaluation #2: 09/16/21 16:18 Patient does demonstrate elevated lactic acid no infectious process identified is thought to be secondary to volume depletion. 09/16/21 16:19 Additional patient also stated she tripped and fell the initial treating doctor that she was also having some nonspecific headache along with her other symptoms . (Nathen Pearson) EKG Findings - EKG Comments: EKG Findings:: EKG demonstrates sinus rhythm with a rate of 87. MD interval 169. QRS 102. QTC of 435. No acute ST segment elevations or depressions <Joann Puckett - Last Filed: 09/27/21 00:19> Medical Decision Making - Lab Data Result diagrams: 09/16/21 13:57 09/16/21 13:57 <Nathen Paerson - Last Filed: 09/16/21 16:15> - Lab Data Result diagrams: 09/16/21 13:57 09/16/21 13:57 <ItaloJoann Mina - Last Filed: 09/27/21 00:19> - Medical Decision Making Upon arrival patient was placed in room 27. A thorough history and physical exam was performed. 12 lead EKG was completed. Laboratory studies were conducted. Lactic acid of 2.7. Patient does go for a CT of her brain as well as CT angiography. Results are pending. Case will be signed out to Dr. Pearson (VadimkhushbuJoann Mina) - Lab Data Lab Results 09/16/21 09/16/21 09/16/21 Range/Units 13:57 13:57 13:57 WBC 7.1 (3.8-10.6) k/uL RBC 4.56 (3.80-5.40) m/uL Hgb 14.3 (11.4-16.0) gm/dL Hct 44.4 (34.0-46.0) % MCV 97.5 (80.0-100.0) fL MCH 31.5 (25.0-35.0) pg MCHC 32.3 (31.0-37.0) g/dL RDW 13.6 (11.5-15.5) % Plt Count 214 (150-450) k/uL MPV 9.5 Neutrophils % 66 % Lymphocytes % 20 % Monocytes % 9 % Eosinophils % 2 % Basophils % 1 % Neutrophils # 4.7 (1.3-7.7) k/uL Lymphocytes # 1.4 (1.0-4.8) k/uL Monocytes # 0.7 (0-1.0) k/uL Eosinophils # 0.1 (0-0.7) k/uL Basophils # 0.1 (0-0.2) k/uL PT 10.6 (9.0-12.0) sec INR 1.0 (<1.2) APTT 21.3 L (22.0-30.0) sec Sodium (137-145) mmol/L Potassium (3.5-5.1) mmol/L Chloride (98-107) mmol/L Carbon Dioxide (22-30) mmol/L Anion Gap mmol/L BUN (7-17) mg/dL Creatinine (0.52-1.04) mg/dL Est GFR (CKD-EPI)AfAm (>60 ml/min/1.73 sqM) Est GFR (CKD-EPI)NonAf (>60 ml/min/1.73 sqM) Glucose (74-99) mg/dL Lactic Ac Sepsis Rflx Plasma Lactic Acid Husam (0.7-2.0) mmol/L Calcium (8.4-10.2) mg/dL Magnesium (1.6-2.3) mg/dL Total Bilirubin (0.2-1.3) mg/dL AST (14-36) U/L ALT (4-34) U/L Alkaline Phosphatase (38-126) U/L Troponin I (0.000-0.034) ng/mL Total Protein (6.3-8.2) g/dL Albumin (3.5-5.0) g/dL TSH (0.465-4.680) mIU/L Urine Color Yellow Urine Appearance Clear (Clear) Urine pH 5.5 (5.0-8.0) Ur Specific [place] >1.050 H (1.001-1.035) Urine Protein 1+ H (Negative) Urine Glucose (UA) Negative (Negative) Urine Ketones Negative (Negative) Urine Blood Negative (Negative) Urine Nitrite Negative (Negative) Urine Bilirubin Negative (Negative) Urine Urobilinogen <2.0 (<2.0) mg/dL Ur Leukocyte Esterase Moderate H (Negative) Urine RBC 6 H (0-5) /hpf Urine WBC 11 H (0-5) /hpf Ur Squamous Epith Cells 2 (0-4) /hpf Hyaline Casts 1 (0-2) /lpf Urine Mucus Rare H (None) /hpf 09/16/21 09/16/21 09/16/21 Range/Units 13:57 13:57 13:57 WBC (3.8-10.6) k/uL RBC (3.80-5.40) m/uL Hgb (11.4-16.0) gm/dL Hct (34.0-46.0) % MCV (80.0-100.0) fL MCH (25.0-35.0) pg MCHC (31.0-37.0) g/dL RDW (11.5-15.5) % Plt Count (150-450) k/uL MPV Neutrophils % % Lymphocytes % % Monocytes % % Eosinophils % % Basophils % % Neutrophils # (1.3-7.7) k/uL Lymphocytes # (1.0-4.8) k/uL Monocytes # (0-1.0) k/uL Eosinophils # (0-0.7) k/uL Basophils # (0-0.2) k/uL PT (9.0-12.0) sec INR (<1.2) APTT (22.0-30.0) sec Sodium 136 L (137-145) mmol/L Potassium 4.7 (3.5-5.1) mmol/L Chloride 105 (98-107) mmol/L Carbon Dioxide 19 L (22-30) mmol/L Anion Gap 12 mmol/L BUN 15 (7-17) mg/dL Creatinine 1.03 (0.52-1.04) mg/dL Est GFR (CKD-EPI)AfAm 66 (>60 ml/min/1.73 sqM) Est GFR (CKD-EPI)NonAf 58 (>60 ml/min/1.73 sqM) Glucose 143 H (74-99) mg/dL Lactic Ac Sepsis Rflx Plasma Lactic Acid Husam 3.7 H* (0.7-2.0) mmol/L Calcium 9.8 (8.4-10.2) mg/dL Magnesium 1.5 L (1.6-2.3) mg/dL Total Bilirubin 0.8 (0.2-1.3) mg/dL AST 26 (14-36) U/L ALT 17 (4-34) U/L Alkaline Phosphatase 81 (38-126) U/L Troponin I <0.012 (0.000-0.034) ng/mL Total Protein 7.2 (6.3-8.2) g/dL Albumin 4.1 (3.5-5.0) g/dL TSH 3.880 (0.465-4.680) mIU/L Urine Color Urine Appearance (Clear) Urine pH (5.0-8.0) Ur Specific [place] (1.001-1.035) Urine Protein (Negative) Urine Glucose (UA) (Negative) Urine Ketones (Negative) Urine Blood (Negative) Urine Nitrite (Negative) Urine Bilirubin (Negative) Urine Urobilinogen (<2.0) mg/dL Ur Leukocyte Esterase (Negative) Urine RBC (0-5) /hpf Urine WBC (0-5) /hpf Ur Squamous Epith Cells (0-4) /hpf Hyaline Casts (0-2) /lpf Urine Mucus (None) /hpf 09/16/21 Range/Units 14:40 WBC (3.8-10.6) k/uL RBC (3.80-5.40) m/uL Hgb (11.4-16.0) gm/dL Hct (34.0-46.0) % MCV (80.0-100.0) fL MCH (25.0-35.0) pg MCHC (31.0-37.0) g/dL RDW (11.5-15.5) % Plt Count (150-450) k/uL MPV Neutrophils % % Lymphocytes % % Monocytes % % Eosinophils % % Basophils % % Neutrophils # (1.3-7.7) k/uL Lymphocytes # (1.0-4.8) k/uL Monocytes # (0-1.0) k/uL Eosinophils # (0-0.7) k/uL Basophils # (0-0.2) k/uL PT (9.0-12.0) sec INR (<1.2) APTT (22.0-30.0) sec Sodium (137-145) mmol/L Potassium (3.5-5.1) mmol/L Chloride (98-107) mmol/L Carbon Dioxide (22-30) mmol/L Anion Gap mmol/L BUN (7-17) mg/dL Creatinine (0.52-1.04) mg/dL Est GFR (CKD-EPI)AfAm (>60 ml/min/1.73 sqM) Est GFR (CKD-EPI)NonAf (>60 ml/min/1.73 sqM) Glucose (74-99) mg/dL Lactic Ac Sepsis Rflx Y Plasma Lactic Acid Husam (0.7-2.0) mmol/L Calcium (8.4-10.2) mg/dL Magnesium (1.6-2.3) mg/dL Total Bilirubin (0.2-1.3) mg/dL AST (14-36) U/L ALT (4-34) U/L Alkaline Phosphatase (38-126) U/L Troponin I (0.000-0.034) ng/mL Total Protein (6.3-8.2) g/dL Albumin (3.5-5.0) g/dL TSH (0.465-4.680) mIU/L Urine Color Urine Appearance (Clear) Urine pH (5.0-8.0) Ur Specific [place] (1.001-1.035) Urine Protein (Negative) Urine Glucose (UA) (Negative) Urine Ketones (Negative) Urine Blood (Negative) Urine Nitrite (Negative) Urine Bilirubin (Negative) Urine Urobilinogen (<2.0) mg/dL Ur Leukocyte Esterase (Negative) Urine RBC (0-5) /hpf Urine WBC (0-5) /hpf Ur Squamous Epith Cells (0-4) /hpf Hyaline Casts (0-2) /lpf Urine Mucus (None) /hpf Disposition <Nathen Pearson - Last Filed: 09/16/21 16:15> <Joann Puckett - Last Filed: 09/27/21 00:19> Clinical Impression: Ataxia, Weakness, Hypomagnesemia, History of CVA (cerebrovascular accident), Lactic acidosis, Dehydration, Headache Disposition: ADMITTED IP TO THIS [facility] Condition: Fair
[2021-09-16 14:19] LABS: Basophils # (A) 0.1 k/uL (0-0.2); Basophils % (A) 1 %; Eosinophils # (A) 0.1 k/uL (0-0.7); Eosinophils % (A) 2 %; HCT 44.4 % (34.0-46.0); HGB 14.3 gm/dL (11.4-16.0); Lymphocytes # (A) 1.4 k/uL (1.0-4.8); Lymphocytes % (A) 20 %; MCH 31.5 pg (25.0-35.0); MCHC 32.3 g/dL (31.0-37.0); MCV 97.5 fL (80.0-100.0); Mean Platelet Volume 9.5; Monocytes # (A) 0.7 k/uL (0-1.0); Monocytes % (A) 9 %; Neutrophils # (A) 4.7 k/uL (1.3-7.7); Neutrophils % (A) 66 %; Platelet Count 214 k/uL (150-450); RBC 4.56 m/uL (3.80-5.40); RDW 13.6 % (11.5-15.5); WBC 7.1 k/uL (3.8-10.6)
[2021-09-16 14:24] LABS: ALT 17 U/L (4-34); AST 26 U/L (14-36); African American GFR (CKD) 66 (>60 ml/min/1.73 sqM); Albumin 4.1 g/dL (3.5-5.0); Alkaline Phosphatase 81 U/L (38-126); Anion Gap 12 mmol/L; Blood Urea Nitrogen 15 mg/dL (7-17); Calcium 9.8 mg/dL (8.4-10.2); Carbon Dioxide 19 mmol/L (22-30); Chloride 105 mmol/L (98-107); Glucose 143 mg/dL (74-99); Magnesium 1.5 mg/dL (1.6-2.3); Non-African American GFR(CKD) 58 (>60 ml/min/1.73 sqM); Potassium 4.7 mmol/L (3.5-5.1); Sodium 136 mmol/L (137-145); Total Bilirubin 0.8 mg/dL (0.2-1.3); Total Protein 7.2 g/dL (6.3-8.2)
--- NOTE | 2021-09-16 14:30 | XR ---
EXAMINATION TYPE: XR chest 2V DATE OF EXAM: 09/16/2021 COMPARISON: None HISTORY: 66-year-old female with weakness TECHNIQUE: AP and lateral views FINDINGS: Reverse right shoulder arthroplasty partially visualized. Heart normal size. Aorta and pulmonary vasc ulature within normal limits. Hazy densities relating to large patient body habitus. There is some st trudy atelectasis in the lower lungs but without consolidation or pleural effusion. [facility] in the mid a nd lower thoracic spine. IMPRESSION: No acute process seen.
[2021-09-16] MEDS ORDERED: SODIUM CHLORIDE 0.9% 1,000 ML IV ONE (14:59)
[2021-09-16 15:00] LABS: Prothrombin Time 10.6 sec (9.0-12.0)
--- NOTE | 2021-09-16 15:05 | CT ---
EXAMINATION TYPE: CT brain wo con DATE OF EXAM: 09/16/2021 COMPARISON: CT 05/10/2020 HISTORY: Weakness, dizziness, high heart rate CT DLP: 1102.8 mGycm Automated exposure control for dose reduction was used. Helical imaging through the brain. FINDINGS: Focal low-attenuation extra-axial location present at the right frontal lobe is more conspicuous than on prior exam, there is some associated encephalomalacia suspected, possible gliosis due to remote i nfarct. There is no hemorrhage or hydrocephalus. Calvarium is intact. Orbits show symmetric appearanc e. Paranasal sinuses are well aerated. Mastoid air cells symmetric and unremarkable. IMPRESSION: FINDINGS MAY BE DUE TO REMOTE INFARCT RIGHT FRONTAL LOBE.
[2021-09-16 15:19] LABS: Partial Thromboplastin Time 21.3 sec (22.0-30.0)
--- NOTE | 2021-09-16 15:49 | CT ---
EXAMINATION TYPE: CT angio head neck DATE OF EXAM: 09/16/2021 HISTORY: Dizziness, double vision, weakness, tachycardia. COMPARISON: Nonenhanced CT brain performed earlier same day CT DLP: 486.4 mGycm. Automated Exposure Control for Dose Reduction was Utilized. TECHNIQUE: CTA scan of the neck is performed with IV Contrast, patient injected with 65 mL of Isovue 370, axial images are obtained, coronal and sagittal reformatted images are reviewed. 3D reconstruct ed images are created on an independent workstation and reviewed. FINDINGS: The proximal portion of the left common carotid artery is obscured by adjacent artifact. Otherwise no rmal caliber and enhancement of the neck arteries and major intracranial arteries without significant stenosis, occlusion, dissection, aneurysm or AV malformation. Patent major intracranial venous sinus es. Redemonstration of the suspected chronic infarct in the anterior aspect of the right frontal lobe. No intracranial abnormal enhancement. Asymmetrical focal bulge seen in the right vallecula measuring 6 mm, for ENT consultation. 3 mm nodule is seen in the right lung apex. Degenerative changes of the cer vical spine most evident at C5-6 level. IMPRESSION: 1. Right anterior frontal cortical and subcortical chronic infarct. No acute arterial abnormality, si gnificant stenosis or occlusion seen in the neck or the intracranial arteries. Proximal portion of th e left common carotid artery is obscured. 2. Asymmetrical focal bulge measuring 6 mm seen in the right vallecula, for ENT consultation. 3. 3 mm nodule in the right lung apex requiring no further follow-up if low risk patient. If high ris k patient, optional follow-up CT scan in 12 months can be considered.
[2021-09-16 15:52] LABS: Appearance,Urine Clear (Clear); Bilirubin,Urine Negative (Negative); Blood,Urine Negative (Negative); Color,Urine Yellow; Glucose,Urine (UA) Negative (Negative); Hyaline Casts,Urine 1 /lpf (0-2); Ketones,Urine Negative (Negative); Leukocyte Esterase,Urine Moderate (Negative); Mucus,Urine Rare /hpf; Nitrite,Urine Negative (Negative); PH, Urine 5.5 (5.0-8.0); Protein,Urine 1+ (Negative); RBC,Urine 6 /hpf (0-5); Squamous Epithelial Cell,Urine 2 /hpf (0-4); Urobilinogen,Urine <2.0 mg/dL (<2.0); WBC,Urine 11 /hpf (0-5)
[2021-09-16 15:59] LABS: Specific Gravity,Urine >1.050 (1.001-1.035)
[2021-09-16] MEDS ORDERED: MAGNESIUM SULFATE-D5W PMX 1 GM in DEXTROSE/WATER 1 100ML.BAG IVPB ONE (16:14)
[2021-09-16] MEDS ORDERED: NALOXONE 0.4 MG/ML 1 ML VIAL IV PRN (16:23)
[2021-09-16] MEDS: SODIUM CHLORIDE 0.9% 1,000 ML IV SCH (17:25)
[2021-09-16] MEDS: metFORMIN 500 MG TAB PO SCH (18:35)
[2021-09-16] MEDS ORDERED: ACETAMINOPHEN TAB 325 MG TAB PO STA (19:02)
[2021-09-16] MEDS ORDERED: Suvorexant [Belsomra] 20 MG Tablet PO SCH (21:00)
[2021-09-16] MEDS ORDERED: lamoTRIgine 100 MG TAB PO SCH (21:00)
[2021-09-16] MEDS ORDERED: NON FORMULARY DRUG (Omega-3 Fatty Acids/Fish Oil [Fish Oil 1,000 Mg Softgel] 1 EACH Capsul PO SCH (21:00)
[2021-09-16] MEDS ORDERED: NON FORMULARY DRUG (Ubidecarenone [Co Q-10] 100 MG Capsule) PO SCH (21:00)
[2021-09-16] MEDS ORDERED: PANTOPRAZOLE 40 MG TABLET PO SCH (21:00)
[2021-09-16] MEDS: MECLIZINE 25 MG TAB PO SCH ×2 (22:33→22:34)
[2021-09-16] MEDS: VENLAFAXINE HCL 50 MG TAB PO SCH (22:41)
[2021-09-17] MEDS: SODIUM CHLORIDE 0.9% 1,000 ML IV SCH ×2 (01:07→12:05)
[2021-09-17 08:36] VITALS: BP 203/119; PULSE 80
[2021-09-17] MEDS: MECLIZINE 25 MG TAB PO SCH (08:48)
[2021-09-17] MEDS: metFORMIN 500 MG TAB PO SCH (08:48)
[2021-09-17] MEDS: VENLAFAXINE HCL 50 MG TAB PO SCH (08:48)
[2021-09-17] MEDS ORDERED: buPROPion XL 150 MG TAB.ER.24H PO SCH (09:00)
[2021-09-17 09:12] VITALS: RESP 18
--- NOTE | 2021-09-17 10:51 | P.DS ---
Providers Date of admission: 09/16/21 16:34 Attending physician: Manjit Mendieta Primary care physician: Emilia Kemp [facility] Course: Please refer to my history of present illness for further details Patient Condition at Discharge: Fair Plan - Discharge Summary Discharge Rx Participant: Yes New Discharge Prescriptions: New Linagliptin [Tradjenta] 5 mg PO DAILY #30 tab No Action Venlafaxine HCl [Effexor] 100 mg PO DAILY metFORMIN HCL [Glucophage] 1,000 mg PO BID lamoTRIgine [LaMICtal] 200 mg PO HS buPROPion XL [Wellbutrin XL] 450 mg PO DAILY Suvorexant [Belsomra] 20 mg PO HS Omeprazole 20 mg PO DAILY Meclizine [Antivert] 12.5 mg PO TID PRN PRN Reason: Vertigo Co Q-10 120mg 2 cap PO DAILY lamoTRIgine [LaMICtal] 100 mg PO DAILY Dha Ultimate Fish Oil 1200mg 2 cap PO DAILY Rizatriptan Odt [Maxalt Lithographing Machine Operator] 10 mg PO DAILY PRN PRN Reason: Migraine Headache Propranolol LA [Inderal LA] 80 mg PO DAILY Cetirizine HCl 10 mg PO DAILY Venlafaxine HCl [Effexor] 200 mg PO HS Discharge Medication List Venlafaxine HCl [Effexor] 100 mg PO DAILY 06/19/18 [History] metFORMIN HCL [Glucophage] 1,000 mg PO BID 06/19/18 [History] Omeprazole 20 mg PO DAILY 05/10/20 [History] Suvorexant [Belsomra] 20 mg PO HS 05/10/20 [History] buPROPion XL [Wellbutrin XL] 450 mg PO DAILY 05/10/20 [History] lamoTRIgine [LaMICtal] 200 mg PO HS 05/10/20 [History] Cetirizine HCl 10 mg PO DAILY 09/16/21 [History] Co Q-10 120mg 2 cap PO DAILY 09/16/21 [History] Dha Ultimate Fish Oil 1200mg 2 cap PO DAILY 09/16/21 [History] Meclizine [Antivert] 12.5 mg PO TID PRN 09/16/21 [History] Propranolol LA [Inderal LA] 80 mg PO DAILY 09/16/21 [History] Rizatriptan Odt [Maxalt Lithographing Machine Operator] 10 mg PO DAILY PRN 09/16/21 [History] Venlafaxine HCl [Effexor] 200 mg PO HS 09/16/21 [History] lamoTRIgine [LaMICtal] 100 mg PO DAILY 09/16/21 [History] Linagliptin [Tradjenta] 5 mg PO DAILY #30 tab 09/17/21 [Rx] Follow up Appointment(s)/Referral(s): Emilia Kemp DO [Primary Care Provider] - 3 Days Coby Bond MD [STAFF PHYSICIAN] - 1 Week
--- NOTE | 2021-09-17 10:51 | P.HPIM ---
History of Present Illness Patient is a 66-year-old female came in with complaints of generalized weakness and was diagnosed with dehydration was subsequently admitted. Patient does have lactic acidosis. Patient does take metformin at home which causes lactic is doses. Patient does have tremors which is secondary to frontotemporal dementia. Patient follows up with neurology in [place] for frontotemporal dementia and patient does have an appointment tomorrow. Patient denied any fever chills patient denied the any nausea vomiting patient had 3 episodes of diarrhea 2 days ago. Patient doesn't have any fever or leukocytosis. REVIEW OF SYSTEMS: CONSTITUTIONAL: No fever, no malaise, no fatigue. HEENT: No recent visual problems or hearing problems. Denied any sore throat. CARDIOVASCULAR: No chest pain, orthopnea, PND, no palpitations, no syncope. PULMONARY: No shortness of breath, no cough, no hemoptysis. GASTROINTESTINAL: No diarrhea, no nausea, no vomiting, no abdominal pain. NEUROLOGICAL: No headaches, no weakness, no numbness. HEMATOLOGICAL: Denies any bleeding or petechiae. GENITOURINARY: Denies any burning micturition, frequency, or urgency. MUSCULOSKELETAL/RHEUMATOLOGICAL: Denies any joint pain, swelling, or any muscle pain. ENDOCRINE: Denies any polyuria or polydipsia. The rest of the 14-point review of systems is negative. PHYSICAL EXAMINATION: GENERAL: The patient is alert and oriented x3, not in any acute distress. Well developed, well nourished. Patient does have a nonessential tremor HEENT: Pupils are round and equally reacting to light. EOMI. No scleral icterus. No conjunctival pallor. Normocephalic, atraumatic. No pharyngeal erythema. No thyromegaly. CARDIOVASCULAR: S1 and S2 present. No murmurs, rubs, or gallops. PULMONARY: Chest is clear to auscultation, no wheezing or crackles. ABDOMEN: Soft, nontender, nondistended, normoactive bowel sounds. No palpable organomegaly. MUSCULOSKELETAL: No joint swelling or deformity. EXTREMITIES: No cyanosis, clubbing, or pedal edema. NEUROLOGICAL: Gross neurological examination did not reveal any focal deficits. SKIN: No rashes. Assessment and plan -Lactic acidosis: Secondary to metformin this will be discontinued and patient will be started on Linagliptan, if insurance doesn't cover Linagliptan patient can resume on the metformin and will need to be evaluated for lactic is doses again and then if she has lactic is doses metformin need to be completely discontinued and the switch to an alternate oral hypoglycemic agent. -Generalized weakness secondary to lactic acidosis, worsening frontotemporal dementia, dehydration: Patient received IV fluids overnight. -Fronto temporal dementia: Patient had a CT of the head and CT angios the head which is significant for some old possible stroke in the frontal lobe -Incidental finding of lung nodule in the apex patient will be referred to pulmonology as an outpatient. Patient will be discharged today: Past Medical History Past Medical History: Dementia, Diabetes Mellitus, Fibromyalgia Additional Past Medical History / Comment(s): DM2 History of Any Multi-Drug Resistant Organisms: None Reported Past Surgical History: Bariatric Surgery Additional Past Surgical History / Comment(s): sleeve gastrectomy 2012 Past Anesthesia/Blood Transfusion Reactions: No Reported Reaction Past Psychological History: Depression Smoking Status: Never smoker Past Alcohol Use History: Rare Past Drug Use History: None Reported Medications and Allergies Home Medications Medication Instructions Recorded Confirmed Type Venlafaxine HCl [Effexor] 100 mg PO DAILY 06/19/18 09/16/21 History metFORMIN HCL [Glucophage] 1,000 mg PO BID 06/19/18 09/16/21 History Omeprazole 20 mg PO DAILY 05/10/20 09/16/21 History Suvorexant [Belsomra] 20 mg PO HS 05/10/20 09/16/21 History buPROPion XL [Wellbutrin XL] 450 mg PO DAILY 05/10/20 09/16/21 History lamoTRIgine [LaMICtal] 200 mg PO HS 05/10/20 09/16/21 History Cetirizine HCl 10 mg PO DAILY 09/16/21 09/16/21 History Co Q-10 120mg 2 cap PO DAILY 09/16/21 09/16/21 History Dha Ultimate Fish Oil 1200mg 2 cap PO DAILY 09/16/21 09/16/21 History Meclizine [Antivert] 12.5 mg PO TID PRN 09/16/21 09/16/21 History Propranolol LA [Inderal LA] 80 mg PO DAILY 09/16/21 09/16/21 History Rizatriptan Odt [Maxalt Team Primary Care Physician] 10 mg PO DAILY PRN 09/16/21 09/16/21 History Venlafaxine HCl [Effexor] 200 mg PO HS 09/16/21 09/16/21 History lamoTRIgine [LaMICtal] 100 mg PO DAILY 09/16/21 09/16/21 History Linagliptin [Tradjenta] 5 mg PO DAILY #30 tab 09/17/21 Rx Allergies Allergy/AdvReac Type Severity Reaction Status Date / Time No Known Allergies Allergy Verified 09/16/21 16:30 Physical Exam Vitals: Vital Signs Temp Pulse Pulse Resp BP BP Pulse Ox 09/17/21 08:57 18 09/17/21 08:00 98.0 F 80 16 203/119 98 09/17/21 06:20 81 18 158/86 99 09/17/21 01:00 90 18 130/93 100 09/16/21 21:14 84 18 158/81 99 09/16/21 18:47 87 18 187/96 100 09/16/21 17:27 76 18 153/83 95 09/16/21 15:20 82 16 153/75 98 09/16/21 13:11 98.0 F 105 H 18 125/69 97 Intake and Output 09/16/21 09/17/21 09/17/21 22:59 06:59 14:59 Other: # Voids 1 Weight 90.718 kg Results CBC & Chem 7: 09/16/21 13:57 09/16/21 13:57 Labs: Abnormal Lab Results - Last 24 Hours (Table) 09/16/21 09/16/21 09/16/21 Range/Units 13:57 13:57 13:57 APTT 21.3 L (22.0-30.0) sec Sodium 136 L (137-145) mmol/L Carbon Dioxide 19 L (22-30) mmol/L Glucose 143 H (74-99) mg/dL Plasma Lactic Acid [place] (0.7-2.0) mmol/L Magnesium 1.5 L (1.6-2.3) mg/dL Ur Specific [place] >1.050 H (1.001-1.035) Urine Protein 1+ H (Negative) Ur Leukocyte Esterase Moderate H (Negative) Urine RBC 6 H (0-5) /hpf Urine WBC 11 H (0-5) /hpf Urine Mucus Rare H (None) /hpf 09/16/21 Range/Units 13:57 APTT (22.0-30.0) sec Sodium (137-145) mmol/L Carbon Dioxide (22-30) mmol/L Glucose (74-99) mg/dL Plasma Lactic Acid [place] 3.7 H* (0.7-2.0) mmol/L Magnesium (1.6-2.3) mg/dL Ur Specific [place] (1.001-1.035) Urine Protein (Negative) Ur Leukocyte Esterase (Negative) Urine RBC (0-5) /hpf Urine WBC (0-5) /hpf Urine Mucus (None) /hpf Microbiology - Last 24 Hours (Table) 09/16/21 13:57 Urine Culture - Preliminary Urine,Voided Thrombosis Risk Factor Assmnt - Choose All That Apply Any of the Below Risk Factors Present?: Yes Each Risk Factor Represents 2 Points: Age 61-74 years Other congenital or acquired thrombophilia - If yes, enter type in comment: No Thrombosis Risk Factor Assessment Total Risk Factor Score: 2 Thrombosis Risk Factor Assessment Level: Low Risk
[2021-09-17] MEDS: MAGNESIUM SULFATE-D5W PMX 1 GM in DEXTROSE/WATER 1 100ML.BAG IVPB SCH ×2 (11:41→12:52)
[2021-09-17] MEDS ORDERED: ACETAMINOPHEN TAB 325 MG TAB PO PRN (11:51)
== END 2021-09-17 14:32 | disposition home or self-care (01) ==
LOC: EC 13:07 → 6NMEDSUR 16:34
PROVIDERS: ADMIT Internal Medicine; ATTEND Internal Medicine
DX: E87.2 Acidosis (principal); T38.3X5A Adverse effect of insulin and oral hypoglycemic [antidiabetic] drugs, initial encounter; I65.22 Occlusion and stenosis of left carotid artery; F02.80 Dementia in other diseases classified elsewhere, unspecified severity, without behavioral disturbance, psychotic disturbance, mood disturbance, and anxiety; G31.09 Other frontotemporal neurocognitive disorder; E11.9 Type 2 diabetes mellitus without complications; I69.314 Frontal lobe and executive function deficit following cerebral infarction; Z20.822 Contact with and (suspected) exposure to COVID-19; E86.0 Dehydration; H53.8 Other visual disturbances; R91.1 Solitary pulmonary nodule; E83.42 Hypomagnesemia; R53.1 Weakness; R27.0 Ataxia, unspecified; M50.322 Other cervical disc degeneration at C5-C6 level; F32.A Depression, unspecified; M79.7 Fibromyalgia; Z79.84 Long term (current) use of oral hypoglycemic drugs; Z79.899 Other long term (current) drug therapy; Z98.84 Bariatric surgery status; Z86.73 Personal history of transient ischemic attack (TIA), and cerebral infarction without residual deficits; Z86.69 Personal history of other diseases of the nervous system and sense organs
CPT/HCPCS: 99285; 96366; 96361; 96365; 36415; 93005; 80053; 80175; 84443; 83605; 83735; 84484; 85025; 85610; 85730; 81001; 87086; 87635; 71046; 70496; 70450; 70498; G0378 ×2; J3475 ×2; Q9967